=== PATIENT | male | born 1960 | race Caucasian/White ===

== ENCOUNTER → 2017-04-02 | Outpatient (CLI) | payer MEDICARE, MEDICAID ==
[~2017-04-02] MED LIST: ASPI-757 PO; ASPI-879 PO; CAL667; CALC667C8 PO; CLON-329 PO; CLON1 PO; CYCL-332 PO; FOLI1CAP19 PO; HYDR50TA35 PO; LIDO5CRE13 TP; MULT-865 PO; OXYC-865 PO; PATI8.4P PO; PRED20TA6 PO; SEVE800T16 PO; SIM10 PO; SODI15OR PO; SODI453.2 PO; TRAZ-156 PO; TRAZ150T8 PO; WAR5 PO; WARF10TA29 PO; [UNRECOGNIZED DRUG - CODE] PO; [UNRECOGNIZED DRUG - OTHER] PO; [UNRECOGNIZED DRUG - OTHER] PO; [UNRECOGNIZED DRUG - OTHER] PO; [UNRECOGNIZED DRUG - OTHER] PO; [UNRECOGNIZED DRUG - OTHER] PO
[2017-04-02 08:06] LABS: PLATELET COUNT, AUTOMATED 169 K/uL (150-450)
== END ==
LOC: LAB 07:32
PROVIDERS: ATTEND Internal Medicine Nephrology
DX: Z79.899 Other long term (current) drug therapy (principal); Z94.0 Kidney transplant status
CPT/HCPCS: 36415; 80197; 82310; 82374; 82435; 82565; 82947; 84100; 84132; 84295; 84520; 85025

== ENCOUNTER → 2017-04-25 | Outpatient (CLI) | payer MEDICARE, MEDICAID ==
[2017-04-25 08:36] LABS: PLATELET COUNT, AUTOMATED 155 K/uL (150-450)
== END ==
LOC: LAB 08:13
PROVIDERS: ATTEND Internal Medicine Nephrology
DX: Z79.899 Other long term (current) drug therapy (principal); Z94.0 Kidney transplant status
CPT/HCPCS: 36415; 80197; 82310; 82374; 82435; 82565; 82947; 84100; 84132; 84295; 84520; 85025

== ENCOUNTER → 2017-05-15 | Outpatient (CLI) | payer MEDICARE, MEDICAID ==
[2017-05-15 08:16] LABS: PLATELET COUNT, AUTOMATED 150 K/uL (150-450)
== END ==
LOC: LAB 08:01
PROVIDERS: ATTEND Internal Medicine Nephrology
DX: Z51.81 Encounter for therapeutic drug level monitoring (principal); Z79.899 Other long term (current) drug therapy; Z94.0 Kidney transplant status
CPT/HCPCS: 36415; 80197; 82310; 82374; 82435; 82565; 82947; 84100; 84132; 84295; 84520; 85025

== ENCOUNTER → 2017-05-16 | Outpatient (CLI) | payer MEDICARE, MEDICAID | LOC: LAB 17:09 | PROVIDERS: ATTEND Internal Medicine Nephrology | DX: D75.1 Secondary polycythemia (principal); E87.2 Acidosis; N25.81 Secondary hyperparathyroidism of renal origin; I10 Essential (primary) hypertension; Z94.0 Kidney transplant status | CPT/HCPCS: 36415; 82040; 82247; 82310; 82330; 82374; 82435; 82565; 82947; 83735; 83970; 84075; 84132; 84155; 84295; 84450; 84460; 84520 ==

== ENCOUNTER → 2017-05-30 | Outpatient (CLI) | payer MEDICARE, MEDICAID | LOC: LAB 08:01 | PROVIDERS: ATTEND Internal Medicine Nephrology | DX: E83.52 Hypercalcemia (principal); Z94.0 Kidney transplant status | CPT/HCPCS: 36415; 80197; 82040; 82306; 82310; 82330; 82374; 82435; 82565; 82947; 83735; 84100; 84132; 84295; 84520 ==

== ENCOUNTER → 2017-05-30 | Outpatient (CLI) | payer MEDICARE, MEDICAID ==
[2017-05-30 09:36] LABS: PLATELET COUNT, AUTOMATED 166 K/uL (150-450)
== END ==
LOC: LAB 07:52
PROVIDERS: ATTEND Internal Medicine Nephrology
DX: Z51.81 Encounter for therapeutic drug level monitoring (principal); Z79.899 Other long term (current) drug therapy; Z94.0 Kidney transplant status
CPT/HCPCS: 85025

== ENCOUNTER → 2017-06-16 | Outpatient (CLI) | payer MEDICARE, MEDICAID ==
[2017-06-16 07:32] LABS: PLATELET COUNT, AUTOMATED 144 K/uL (150-450)
== END ==
LOC: LAB 07:05
PROVIDERS: ATTEND Internal Medicine Nephrology
DX: Z79.899 Other long term (current) drug therapy (principal); Z94.0 Kidney transplant status
CPT/HCPCS: 36415; 80197; 82310; 82374; 82435; 82565; 82947; 84100; 84132; 84295; 84520; 85025

== ENCOUNTER → 2017-07-01 | Outpatient (CLI) | payer MEDICARE, MEDICAID | LOC: LAB 09:23 | PROVIDERS: ATTEND Internal Medicine Nephrology | DX: I12.9 Hypertensive chronic kidney disease with stage 1 through stage 4 chronic kidney disease, or unspecified chronic kidney disease (principal); N18.2 Chronic kidney disease, stage 2 (mild); E87.2 Acidosis; N25.81 Secondary hyperparathyroidism of renal origin; Z79.899 Other long term (current) drug therapy; D75.1 Secondary polycythemia; Z94.0 Kidney transplant status | CPT/HCPCS: 36415; 82330 ==

== ENCOUNTER → 2017-07-25 | Outpatient (CLI) | payer MEDICARE, MEDICAID ==
[2017-07-25 10:36] LABS: LDL CHOLESTEROL 89 mg/dl
== END ==
LOC: LAB 07:29
PROVIDERS: ATTEND Nurse Practitioner Family
DX: E78.00 Pure hypercholesterolemia, unspecified (principal); R53.83 Other fatigue; Q61.2 Polycystic kidney, adult type; I10 Essential (primary) hypertension
CPT/HCPCS: 36415; 82040; 82247; 82306; 82310; 82374; 82435; 82465; 82565; 82607; 82947; 83036; 83718; 84075; 84132; 84155; 84295; 84443; 84450; 84460; 84478; 84520; 85027

== ENCOUNTER → 2017-08-22 | Outpatient (CLI) | payer MEDICARE, MEDICAID ==
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
== END ==
LOC: US 13:44
PROVIDERS: ATTEND Nurse Practitioner Family
DX: N44.2 Benign cyst of testis (principal); N50.3 Cyst of epididymis; N43.2 Other hydrocele
CPT/HCPCS: 76870

== ENCOUNTER → 2017-08-31 | Outpatient (CLI) | payer MEDICARE, MEDICAID ==
[2017-08-31 08:52] LABS: PLATELET COUNT, AUTOMATED 161 K/uL (150-450)
== END ==
LOC: LAB 08:20
PROVIDERS: ATTEND Internal Medicine Nephrology
DX: Z94.0 Kidney transplant status (principal); Z79.899 Other long term (current) drug therapy
CPT/HCPCS: 36415; 80197; 82310; 82374; 82435; 82565; 82947; 84100; 84132; 84295; 84520; 85025

== ENCOUNTER → 2017-09-26 | Outpatient (CLI) | payer MEDICARE, MEDICAID ==
[2017-09-26 08:43] LABS: PLATELET COUNT, AUTOMATED 157 K/uL (150-450)
== END ==
LOC: LAB 08:09
PROVIDERS: ATTEND Internal Medicine Nephrology
DX: Z94.0 Kidney transplant status (principal); Z79.899 Other long term (current) drug therapy
CPT/HCPCS: 36415; 80197; 82310; 82374; 82435; 82565; 82947; 84100; 84132; 84295; 84520; 85025

== ENCOUNTER → 2017-10-27 | Outpatient (CLI) | payer MEDICARE, MEDICAID ==
[~2017-10-27] MED LIST changes: -TRAZ-156 PO; +TRAZ50TA34 PO
[2017-10-27 08:51] LABS: PLATELET COUNT, AUTOMATED 166 K/uL (150-450)
== END ==
LOC: LAB 08:15
PROVIDERS: ATTEND Internal Medicine Nephrology
DX: Z51.81 Encounter for therapeutic drug level monitoring (principal); Z79.899 Other long term (current) drug therapy; Z94.0 Kidney transplant status
CPT/HCPCS: 80197; 82310; 82374; 82435; 82565; 82947; 84100; 84132; 84295; 84520; 85025

== ENCOUNTER → 2017-10-27 | Outpatient (CLI) | payer MEDICARE, MEDICAID | LOC: LAB 08:10 | PROVIDERS: ATTEND Internal Medicine Nephrology | DX: I12.9 Hypertensive chronic kidney disease with stage 1 through stage 4 chronic kidney disease, or unspecified chronic kidney disease (principal); N18.2 Chronic kidney disease, stage 2 (mild); E87.2 Acidosis; N25.81 Secondary hyperparathyroidism of renal origin; Z79.899 Other long term (current) drug therapy; D75.1 Secondary polycythemia; Z94.0 Kidney transplant status | CPT/HCPCS: 36415; 83036; 83970 ==

== ENCOUNTER → 2017-11-16 | Outpatient (CLI) | payer MEDICARE, MEDICAID | LOC: LAB 08:48 | PROVIDERS: ATTEND Internal Medicine Nephrology | DX: E21.1 Secondary hyperparathyroidism, not elsewhere classified (principal); Z94.0 Kidney transplant status | CPT/HCPCS: 80197; 82040; 82247; 82306; 82310; 82374; 82435; 82565; 82947; 83735; 84075; 84080; 84100; 84132; 84155; 84295; 84450; 84460; 84520 ==

== ENCOUNTER → 2017-11-16 | Outpatient (CLI) | payer MEDICARE, MEDICAID ==
[2017-11-16 09:21] LABS: PLATELET COUNT, AUTOMATED 177 K/uL (150-450)
== END ==
LOC: LAB 08:43
PROVIDERS: ATTEND Internal Medicine Nephrology
DX: Z94.0 Kidney transplant status (principal)
CPT/HCPCS: 36415; 85025

== ENCOUNTER → 2017-12-21 | Outpatient (CLI) | payer MEDICARE, MEDICAID ==
[2017-12-21 08:40] LABS: PLATELET COUNT, AUTOMATED 195 K/uL (150-450)
== END ==
LOC: LAB 08:14
PROVIDERS: ATTEND Internal Medicine Nephrology
DX: Z94.0 Kidney transplant status (principal)
CPT/HCPCS: 36415; 80197; 82310; 82374; 82435; 82565; 82947; 84100; 84132; 84295; 84520; 85025

== ENCOUNTER → 2017-12-21 | Outpatient (CLI) | payer OTHER, MEDICAID | LOC: LAB 08:25 | PROVIDERS: ATTEND Nurse Practitioner | DX: Z02.9 Encounter for administrative examinations, unspecified (principal) | CPT/HCPCS: 36415; 99001 ==

== ENCOUNTER → 2018-01-13 | Outpatient (CLI) | payer OTHER, MEDICAID ==
[2018-01-13 08:08] LABS: PLATELET COUNT, AUTOMATED 204 K/uL (150-450)
== END ==
LOC: LAB 07:47
PROVIDERS: ATTEND Internal Medicine Nephrology
DX: Z84.0 Family history of diseases of the skin and subcutaneous tissue (principal)
CPT/HCPCS: 36415; 80197; 82310; 82374; 82435; 82565; 82947; 84100; 84132; 84295; 84520; 85025

== ENCOUNTER → 2018-02-03 | Outpatient (CLI) | payer OTHER, MEDICAID ==
[2018-02-03 08:26] LABS: PLATELET COUNT, AUTOMATED 178 K/uL (150-450)
== END ==
LOC: LAB 08:03
PROVIDERS: ATTEND Internal Medicine Nephrology
DX: Z94.0 Kidney transplant status (principal)
CPT/HCPCS: 36415; 80197; 82310; 82374; 82435; 82565; 82947; 84100; 84132; 84295; 84520; 85025

== ENCOUNTER → 2018-02-20 | Outpatient (CLI) | payer OTHER, MEDICAID ==
[2018-02-20 10:26] LABS: PLATELET COUNT, AUTOMATED 233 K/uL (150-450)
== END ==
LOC: LAB 10:10
PROVIDERS: ATTEND Internal Medicine Nephrology
DX: Z94.0 Kidney transplant status (principal)
CPT/HCPCS: 36415; 80197; 82310; 82374; 82435; 82565; 82947; 84100; 84132; 84295; 84520; 85025

== ENCOUNTER → 2018-03-20 | Outpatient (CLI) | payer MEDICARE, MEDICAID ==
[2018-03-20 08:43] LABS: PLATELET COUNT, AUTOMATED 184 K/uL (150-450)
== END ==
LOC: LAB 08:17
PROVIDERS: ATTEND Internal Medicine Nephrology
DX: Z94.0 Kidney transplant status (principal)
CPT/HCPCS: 36415; 80197; 82310; 82374; 82435; 82565; 82947; 84100; 84132; 84295; 84520; 85025

== ENCOUNTER → 2018-04-06 | Outpatient (CLI) | payer MEDICARE, MEDICAID ==
[2018-04-06 09:26] LABS: PLATELET COUNT, AUTOMATED 175 K/uL (150-450)
== END ==
LOC: LAB 08:46
PROVIDERS: ATTEND Internal Medicine Nephrology
DX: Z94.0 Kidney transplant status (principal)
CPT/HCPCS: 36415; 80197; 82310; 82374; 82435; 82565; 82947; 84100; 84132; 84295; 84520; 85025

== ENCOUNTER → 2018-05-09 | Outpatient (CLI) | payer MEDICARE, MEDICAID | LOC: LAB 08:48 | PROVIDERS: ATTEND Internal Medicine Nephrology | DX: Q61.3 Polycystic kidney, unspecified (principal); N18.2 Chronic kidney disease, stage 2 (mild); Z94.0 Kidney transplant status | CPT/HCPCS: 36415; 82310; 82570; 83036; 83970; 84080; 84156; 87799 ==

== ENCOUNTER → 2018-05-10 | Outpatient (REF) | payer MEDICARE, MEDICAID | LOC: ZZSENDIN 08:25 | PROVIDERS: ATTEND Internal Medicine Nephrology | DX: Z94.0 Kidney transplant status (principal) | CPT/HCPCS: 80197 ==

== ENCOUNTER → 2018-05-17 | Outpatient (CLI) | payer MEDICARE, MEDICAID ==
[2018-05-17 09:03] LABS: PLATELET COUNT, AUTOMATED 187 K/uL (150-450)
== END ==
LOC: LAB 08:46
PROVIDERS: ATTEND Internal Medicine Nephrology
DX: Z94.0 Kidney transplant status (principal)
CPT/HCPCS: 36415; 80197; 82310; 82374; 82435; 82565; 82947; 84100; 84132; 84295; 84520; 85025

== ENCOUNTER → 2018-06-19 | Outpatient (CLI) | payer MEDICARE, MEDICAID ==
[2018-06-19 08:39] LABS: PLATELET COUNT, AUTOMATED 166 K/uL (150-450)
== END ==
LOC: LAB 08:21
PROVIDERS: ATTEND Internal Medicine Nephrology
DX: Z94.0 Kidney transplant status (principal)
CPT/HCPCS: 36415; 80197; 82310; 82374; 82435; 82565; 82947; 84100; 84132; 84295; 84520; 85025

== ENCOUNTER → 2018-06-27 | Outpatient (CLI) | payer OTHER, MEDICARE, MEDICAID | LOC: LAB 08:24 | PROVIDERS: ATTEND Nurse Practitioner | DX: Z02.89 Encounter for other administrative examinations (principal) | CPT/HCPCS: 99001 ==

== ENCOUNTER → 2018-07-17 | Outpatient (CLI) | payer OTHER, MEDICARE, MEDICAID ==
[2018-07-17 08:37] LABS: PLATELET COUNT, AUTOMATED 154 K/uL (150-450)
== END ==
LOC: LAB 08:16
PROVIDERS: ATTEND Internal Medicine Nephrology
DX: Z94.0 Kidney transplant status (principal)
CPT/HCPCS: 36415; 80197; 82310; 82374; 82435; 82565; 82947; 84100; 84132; 84295; 84520; 85025

== ENCOUNTER → 2018-08-21 | Outpatient (CLI) | payer OTHER, MEDICARE, MEDICAID ==
[2018-08-21 08:57] LABS: PLATELET COUNT, AUTOMATED 192 K/uL (150-450)
== END ==
LOC: LAB 08:27
PROVIDERS: ATTEND Internal Medicine Nephrology
DX: Z94.0 Kidney transplant status (principal)
CPT/HCPCS: 36415; 80197; 82310; 82374; 82435; 82565; 82947; 84100; 84132; 84295; 84520; 85025

== ENCOUNTER → 2018-08-29 | Outpatient (CLI) | payer OTHER, MEDICARE, MEDICAID ==
[2018-08-29 09:07] LABS: PLATELET COUNT, AUTOMATED 194 K/uL (150-450)
== END ==
LOC: LAB 08:31
PROVIDERS: ATTEND Internal Medicine Nephrology
DX: Z94.0 Kidney transplant status (principal); I99.9 Unspecified disorder of circulatory system; I10 Essential (primary) hypertension; N18.2 Chronic kidney disease, stage 2 (mild); Q61.3 Polycystic kidney, unspecified
CPT/HCPCS: 36415; 80197; 82040; 82247; 82310; 82374; 82435; 82465; 82565; 82947; 83718; 83735; 84075; 84100; 84132; 84155; 84295; 84450; 84460; 84478; 84520; 85025

== ENCOUNTER 2018-09-13 08:25 | Emergency (ER) | payer OTHER, MEDICARE, MEDICAID ==
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
[2018-09-13 11:30] VITALS: BP 129/83
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
[2018-09-13] MEDS ORDERED: OXYC-865 PO (11:52)
== END 2018-09-13 12:03 | disposition home or self-care (01) ==
LOC: ER 08:40
DX: S16.1XXA Strain of muscle, fascia and tendon at neck level, initial encounter (principal); V49.60XA Unspecified car occupant injured in collision with unspecified motor vehicles in traffic accident, initial encounter
CPT/HCPCS: 72141; 99284

== ENCOUNTER → 2018-09-13 | Outpatient (CLI) | payer MEDICARE, MEDICAID ==
[~2018-09-13] MED LIST changes: -SODI15OR PO; +SODI15OR5 PO; -TRAZ50TA34 PO; +TRAZ50TA52 PO
[2018-09-13 09:03] LABS: PLATELET COUNT, AUTOMATED 196 K/uL (150-450)
== END ==
LOC: LAB 08:01
PROVIDERS: ATTEND Internal Medicine Nephrology
DX: Z94.0 Kidney transplant status (principal)
CPT/HCPCS: 36415; 80197; 82310; 82374; 82435; 82565; 82947; 84100; 84132; 84295; 84520; 85025

== ENCOUNTER → 2018-10-16 | Outpatient (CLI) | payer OTHER, MEDICARE, MEDICAID ==
[2018-10-16 09:11] LABS: PLATELET COUNT, AUTOMATED 210 K/uL (150-450)
== END ==
LOC: LAB 08:49
PROVIDERS: ATTEND Internal Medicine Nephrology
DX: Z94.0 Kidney transplant status (principal)
CPT/HCPCS: 36415; 80197; 82310; 82374; 82435; 82565; 82947; 84100; 84132; 84295; 84520; 85025

== ENCOUNTER → 2018-11-20 | Outpatient (CLI) | payer MEDICARE, MEDICAID ==
[2018-11-20 10:14] LABS: PLATELET COUNT, AUTOMATED 186 K/uL (150-450)
[2018-11-20 10:39] LABS: LDL CHOLESTEROL 88 mg/dl
== END ==
LOC: LAB 08:48
PROVIDERS: ATTEND Internal Medicine Nephrology
DX: N18.3 Chronic kidney disease, stage 3 (moderate) (principal); E13.9 Other specified diabetes mellitus without complications; Q61.3 Polycystic kidney, unspecified; E87.5 Hyperkalemia; Z94.0 Kidney transplant status; I12.9 Hypertensive chronic kidney disease with stage 1 through stage 4 chronic kidney disease, or unspecified chronic kidney disease
CPT/HCPCS: 36415; 80197; 82040; 82247; 82310; 82374; 82435; 82465; 82565; 82947; 83036; 83718; 83735; 84075; 84100; 84132; 84155; 84295; 84450; 84460; 84478; 84520; 85025